=== PATIENT | female | born 1980 | race Caucasian/White ===

== ENCOUNTER 2025-05-08 14:08 | Emergency (ER) | payer SELFPAY ==
[~2025-05-08] VITALS: Ht 157.5 cm; Wt 61.0 kg
[2025-05-08 14:12] VITALS: BP 107/66; PULSE 95; RESP 16; TEMP 36.6; O2SAT 98
== END 2025-05-08 14:59 | disposition left against medical advice (07) ==
LOC: ER 14:29
DX: Z00.8 Encounter for other general examination (principal)
CPT/HCPCS: 99281